=== PATIENT | female | born 1995 | race Caucasian/White ===

== ENCOUNTER 2024-05-01 00:59 | Day surgery (SDC) | payer OTHER, SELFPAY ==
[2024-04-24 10:06] VITALS: BMI 41.2
--- NOTE | 2024-04-24 10:12 | PC.NURSE ---
Report to the Outpatient Waiting Room, entrance under the green pavilion located off [facility], at time _0800_ on date _[id number]_. Planned Procedure Time: _1000_.? Time changes happen often and if your time is changed the preop area will call you the afternoon before. - You and your visitor will be asked to self-screen and do not enter if you have any COVID symptoms. Please call surgeon if you need to reschedule. - A mask is optional within the hospital at this time. Patients may have clear liquids (water, carbonated beverages, clear teas, apple juice) until 3 hours prior to surgery with a maximum of 20 ounces. - No food from midnight until time of surgery and no smoking Take only the following medications with a SIP of water on the morning of surgery: __Abilify__ DO NOT STOP ANY OF YOUR OTHER PRESCRIPTION MEDICATIONS PRIOR TO SURGERY EXCEPT THE FOLLOWING Medications to discontinue per physician ___None___ Please no make-up, nail italian, hairspray, perfume, deodorant, or body powder the day of surgery.? No jewelry (including any body piercings) or valuables the day of surgery, leave them at home.? Please take a shower or bath the night before, or the morning of, surgery with an antibacterial soap.? Wear comfortable, loose fitting clothing.? - Jewelry must be removed prior to entering the operating room.? Rings and piercings that are not removed may be cut off. - The hospital will not accept responsibility for valuables.? - Please leave all valuables, including medications, at home the day of surgery. If you are going home after surgery, a licensed class b driver must drive you home.? - NO public transportation without another adult if you receive anesthesia. - We recommend that an adult stay with you for 24 hours following discharge. - We also recommend that you do not drive, make important decision, drink alcoholic beverages, or take any drugs that were not prescribed by your health care provider for at least 24 hours after your discharge time. Follow any additional instructions given to you from your surgeon. Telephone instructions given to __Keara__and asked if any additional questions and then verbalized understanding. Patient advised to call surgeon office or pre surgery nurse liaison [phone] if any additional questions.
[2024-05-01] VITALS (8 sets, daily range): BP systolic 112–136; BP diastolic 55–81; PULSE 62–95; RESP 16–22; TEMP 36.2–36.7; O2SAT 96–100
[2024-05-01] MEDS: ACETAMINOPHEN 500 MG TABLET 1000 MG PO ×2 (08:55→13:09)
[2024-05-01] MEDS: LACTATED RINGERS 1,000 ML 30 ML IV CONT ×2 (09:00→11:33)
[2024-05-01] MEDS: KETOROLAC 15 MG/ML VIAL (*BKC) IV PUSH (09:03)
--- NOTE | 2024-05-01 09:29 | WPDANESEPPF ---
Anes - Initial Pre Proc Eval Procedure: Operation Date: 05/01/24 10:30 Proposed Procedures p Bilateral Laparoscopic Salpingectomy - Harris Littlejohn MD s Hysteroscopy with Mary Endometrial Ablation - Harris Littlejohn MD Date/Time: 05/01/24 09:29 Surgeon: Harris Littlejohn MD Pre Op Diagnosis: desires sterilization, menorrhagia Patient Data Age: 29 Gender: F Height: 1.57 m Weight: 104.2 kg Last Vital Signs Temp 97.1 F L 05/01/24 08:39 Pulse 62 05/01/24 08:39 Resp 18 05/01/24 08:39 BP 112/69 05/01/24 08:39 Pulse Ox 100 05/01/24 08:39 O2 Del Method Room Air 05/01/24 08:39 Allergies Allergy/AdvReac Type Severity Reaction Status Date / Time No Known Allergies Allergy Verified 05/01/24 09:11 Home Medications Medication Instructions Recorded Confirmed Type aripiprazole 2 mg tablet 2 mg PO DAILY 04/24/24 05/01/24 History escitalopram oxalate 10 mg tablet 10 mg PO HS 04/24/24 05/01/24 History Patient hx anesthesia problems: none Family hx anesthesia problems: none Results Review: All pre-operative results and documents have been reviewed as part of the pre-operative evaluation. [facility] Social History Social History Tobacco type: e-cigarettes/vaping Alcohol intake: current Drinks per week: 4 Substance use type: marijuana Other substance usage details: daily Living arrangements: with family Spiritual care concerns: No Anes - Eval Final PreProcedure Day of Procedure 05/01/24 09:29 Patient weight: morbidly obese Heart: regular rate and rhythm Lungs: clear to auscultation Airway: Mallampati scale class II Neurological: alert and oriented Last oral intake: >/= 8 hours ASA classification: III Emergent: no Anesthetic plan: proceed Anesthesia type and monitoring: general ETT and standard monitoring Results Review: All pre-operative results and documents have been reviewed as part of the pre-operative evaluation. Vapes daily, 2 years, vaped at approx 8 am. BMI 42. Informed Consent: The patient's anesthetic plan and its attendant risks and benefits were discussed with the patient/family/POA. Questions were solicited and answers provided to the satisfaction of the patient/family/POA.
--- NOTE | 2024-05-01 10:14 | WPDHPUPDATE1 ---
History and Physical Update Update Date/Time: 05/01/24 10:14 History and Physical has been reviewed, including an updated exam of the patient. There are NO changes in the patient's condition. Risks, benefits, and alternatives have been discussed and questions answered. Patient agrees to proceed with procedure.
--- NOTE | 2024-05-01 10:14 | PM.IMHP ---
H&P: HPI History of Present Illness Date/Time: 05/01/24 10:14 Chief Complaint: heavy Vaginal bleeding Narrative: this patient is a 29-year-old female with menorrhagia and unwanted fertility. We have agreed to perform laparoscopic bilateral salpingectomy and endometrial ablation with hysteroscopy. The patient understands the details of the procedure. The procedure has been explained in detail. She understands the risks. She understands that injuries may occur that result in hospitalization, more surgery, and severe illness. She understands risk of hemorrhage and infection. She denies any chest pain or shortness of breath. She denies any nausea, vomiting, fever, chills. Review of Systems Review of Systems: All systems reviewed & are unremarkable except as noted in HPI and below Constitutional: Constitutional: Denies chills, Denies fatigue, Denies fever(s) and Denies weakness Eyes: Eyes: Denies blurry vision, Denies change in vision, Denies loss of peripheral vision, Denies loss of vision, Denies other visual disturbances and Denies eye pain ENT: Denies vertigo, Denies dizziness, Denies hearing loss, Denies mouth pain, Denies nasal obstruction, Denies neck mass and Denies neck pain Cardiovascular: Cardiovascular: Denies chest pain, Denies diaphoresis, Denies syncope, Denies leg edema and Denies dyspnea Respiratory: Respiratory: Denies chest congestion, Denies cough, Denies hemoptysis, Denies dyspnea and Denies wheezing Gastrointestinal: Gastrointestinal: Denies abdominal pain, Denies constipation, Denies diarrhea, Denies nausea and Denies vomiting Genitourinary: Genitourinary: Denies hematuria, Denies change in libido, Denies nocturia, Denies genital lesions, Denies flank pain and Denies urinary urgency Musculoskeletal: Musculoskeletal: Denies abnormal gait, Denies back pain, Denies myalgias, Denies arthralgias, Denies joint swelling, Denies muscle weakness and Denies neck pain Integumentary/Breasts: Skin/Breast: Denies swelling, Denies breast pain, Denies breast mass, Denies dry skin, Denies nipple discharge, Denies unusual bruising and Denies jaundice Neurologic: Denies Neuro-related abnormal movements, Denies Abnormal speech present, Denies abnormal gait, Denies behavioral changes, Denies confusion, Denies vertigo, Denies dizziness, Denies syncope, Denies loss of vision, Denies memory loss, Denies convulsions and Denies weakness Psychiatric: Psychiatric: Denies abnormal sleep pattern, Denies behavioral changes, Denies change in libido, Denies confusion, Denies depression, Denies anhedonia and Denies memory loss Endocrine: Endocrine: Reports no additional endocrine complaints, Denies change in libido and Denies fatigue Hematologic/Lymphatic: Hematologic/Lymphatic: Reports no additional hematologic/lymphatic complaints Allergic/Immunologic: Allergic/Immunologic: Reports no additional allergic/immunologic complaints and Denies wheezing [facility] Social History Social History Tobacco type: e-cigarettes/vaping Alcohol intake: current Drinks per week: 4 Substance use type: marijuana Other substance usage details: daily Living arrangements: with family Spiritual care concerns: No Meds Home Medications and Allergies Home Medications Medication Instructions Recorded Confirmed Type aripiprazole 2 mg tablet 2 mg PO DAILY 04/24/24 05/01/24 History escitalopram oxalate 10 mg tablet 10 mg PO HS 04/24/24 05/01/24 History Allergies Allergy/AdvReac Type Severity Reaction Status Date / Time No Known Allergies Allergy Verified 05/01/24 09:11 Vital Signs Vital Signs - 24 hr 05/01/24 08:39 Temperature 97.1 F L Pulse Rate 62 Respiratory Rate 18 Blood Pressure 112/69 Pulse Oximetry 100 Oxygen Delivery Room Air Exam Const: General: cooperative, healthy appearing, comfortable and no acute distress Orientation/consciousness: oriented to person, oriented to place and oriented to time HENMT: Head: normal to inspection Ears: external ears normal Face/Nose/Sinus: Normal external nose present and normal facial exam Face and sinus: normal facial exam Eyes: General: appearance normal, both eyes and all related structures Neck: Neck: normal visual inspection, trachea midline and supple Resp: Auscultation: clear to auscultation bilaterally, no crackles, no rales, no rhonchi and no wheezes Cardio: Rate: regular rate Rhythm: regular rhythm Heart sounds: no click, no murmurs and no rubs GI: GI Palp: No abdominal tenderness, No Soft to palpation, No Tenderness to palpation present (GI) and No Palpable mass present Auscultation: normal bowel sounds Skin: General skin exam: normal color and no rashes or lesions noted Neuro: General: oriented to person, oriented to place and oriented to time Extrem: General: normal to inspection, no joint enlargement, no clubbing, cyanosis or edema, no pedal edema and no calf tenderness Psych: Appearance: grossly normal Mental Status: mental status grossly normal Speech and movement: Normal speech and movement present Assessment and Plan Assessment and plan (1) Menorrhagia: Code(s): N92.0 - Excessive and frequent menstruation with regular cycle Status: Acute (2) Encounter for female sterilization procedure: Code(s): Z30.2 - Encounter for sterilization Status: Acute Plan this patient is a 29-year-old female with menorrhagia and unwanted fertility. We have agreed to perform endometrial ablation with hysteroscopy and laparoscopic bilateral salpingectomy. She understands risks, benefits, and alternatives. She has completed the informed consent process is ready to proceed.
[2024-05-01] MEDS: fentaNYL CITRATE INJ (*CRX) 100 MCG/2 ML VIAL 25 MCG IV PUSH ×8 (11:35→12:51)
--- NOTE | 2024-05-01 11:35 | P.OP_ITS ---
Procedure Note - Detailed Date of Procedure 05/01/24 Pre-op Diagnosis desires sterilization, menorrhagia Post-op Diagnosis Same Procedure Performed Laparoscopic bilateral salpingectomy with endometrial ablation and hysteroscopy. 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 Narrow endometrial cavity. Could not fully distend the balloon Description of Procedure Patient was taken the operating room. She has prepped draped in the dorsal lithotomy position after induction of general anesthesia. A 5 mm abdominal incision was made in left upper quadrant of the abdomen with scalpel. A 5 mm trocars inserted the intra-abdominal cavity under direct visualization of the scope. Pneumoperitoneum was achieved. A 5 mm periumbilical incision was made using a scalpel on the abdominal scan. A 5 mm trocar was inserted the intra-abdominal cavity under visualization of the scope. A 5 mm incision made left lower quadrant of the abdomen. A 5 mm trocar was inserted the intra- abdominal cavity and direct visualization of the scope. The bilateral fallopian tubes were removed. The paratubal tissue in the area of the uterus was grasped with the LigaSure cautery and transected after being cauterized. The paratubal tissue from the ovary to the uterine cornu was cauterized and transected with LigaSure cautery. This was all done in a bilateral fashion. The tube was transected at the area of the uterine cornua and the tubes was removed through the 5 mm trocar site. The pneumoperitoneum was reduced. The trocars were removed. The skin was closed with subcuticular 4 Monocryl and covered with Dermabond. Our attention was then turned to the endometrial ablation portion of the procedure. A speculum was placed in the vagina. The cervix was grasped with a tenaculum. The cervix was dilated to approximately 8 mm with Matos dilators. The hysteroscope was inserted. And the below findings were noted. All of the intrauterine surfaces were curettaged with a medium-size curette and the specimens were collected. Measurements of the cervix were taken using the uterine sound and the hysteroscope. The intrauterine cavity measurements were entered into the handpiece. The device was inserted into the intrauterine cavity and the array was expanded. The balloon cuff was inflated. When an adequate seal was formed the safety and energy cycles were initiated and completed. The array was collapsed, the balloon was deflated. The insert was withdrawn. The hysteroscope was reinserted and a well desiccated intrauterine cavity was observed. The patient was taken recovery room stable condition. Sponge lap and needle counts were correct x2. She tolerated the procedure well. Estimated Blood Loss 20 Pathology Yes Complications No immediate complications Condition Stable Disposition PACU
[2024-05-01] MEDS: oxyCODONE HCL (*CRX) 5 MG TAB IR PO ×2 (12:22→13:10)
== END 2024-05-01 13:32 | disposition home or self-care (01) ==
PROVIDERS: Visit Provider Obstetrics & Gynecology
PROC: (CPT 49320; principal; 2024-05-01 10:30)
PROC: 0U5B8ZZ Destruction of Endometrium, Via Natural or Artificial Opening Endoscopic (ICD-10-PCS; CPT 58563; 2024-05-01 10:30)
DX: Z30.2 Encounter for sterilization (principal); G89.18 Other acute postprocedural pain; F17.290 Nicotine dependence, other tobacco product, uncomplicated; F12.90 Cannabis use, unspecified, uncomplicated; E66.01 Morbid (severe) obesity due to excess calories; Z68.41 Body mass index [BMI] 40.0-44.9, adult
CPT/HCPCS: 58661; 58563; 88302; A9270; J1100; J1171; J1885; J2250; J2405; J2704; J3010; J7120